=== PATIENT | male | born 1980 | race Caucasian/White ===

== ENCOUNTER 2019-11-09 08:17 | Outpatient (CLI) | payer BC ==
--- NOTE | 2019-11-09 11:52 | CT ---
CT ABDOMEN WITH AND WITHOUT IV CONTRAST: HISTORY: Abdominal ultrasound of 10/08/2019 from [facility]. FINDINGS: The lung bases are clear. The spleen, pancreas, adrenal glands, and kidneys are normal. The liver d emonstrates decreased attenuation compared to the spleen consistent with fatty infiltration. No hepa tic mass or abnormal biliary ductal dilatation is seen. No calcified gallstones are seen. No free a ir, free fluid, or lymphadenopathy is seen in the abdomen. The aorta is of normal caliber. The smal l bowel loops are not abnormally dilated. The bony structures are unremarkable. IMPRESSION: Fatty liver. No evidence of hepatic mass. POS: [facility]
== END 2019-11-09 08:18 | disposition home or self-care (01) ==
LOC: SCSCT 08:17
PROVIDERS: ATTEND Family Medicine
DX: R74.8 Abnormal levels of other serum enzymes (principal); R93.2 Abnormal findings on diagnostic imaging of liver and biliary tract; K76.0 Fatty (change of) liver, not elsewhere classified
CPT/HCPCS: 74170